=== PATIENT | female | born 1960 | race African-American/Black ===

== ENCOUNTER 2021-07-19 04:31 | Day surgery (SDC) | payer OTHER ==
[2021-07-19 08:24] VITALS: BMI 21.4
[2021-07-19 09:28] VITALS: TEMP 97.7
[2021-07-19 10:15] VITALS: BP 152/88; PULSE 48
== END 2021-07-19 10:15 | disposition home or self-care (01) ==
LOC: JASU-ENDO 04:31
PROVIDERS: ATTEND Internal Medicine Gastroenterology
PROC: 0DBN8ZX Excision of Sigmoid Colon, Via Natural or Artificial Opening Endoscopic, Diagnostic (ICD-10-PCS; 2021-07-19)
PROC: 0DBP8ZX Excision of Rectum, Via Natural or Artificial Opening Endoscopic, Diagnostic (ICD-10-PCS; 2021-07-19)
PROC: 0DBF8ZX Excision of Right Large Intestine, Via Natural or Artificial Opening Endoscopic, Diagnostic (ICD-10-PCS; principal; 2021-07-19 08:45)
DX: Z12.11 Encounter for screening for malignant neoplasm of colon (principal); K62.1 Rectal polyp; K64.8 Other hemorrhoids
CPT/HCPCS: 88305-TC